=== PATIENT | female | born 1990 | race African-American/Black ===

== ENCOUNTER 2019-09-05 11:10 | Emergency (ER) | payer OTHER ==
[2019-09-05 11:21] VITALS: BP 103/64; PULSE 63; TEMP 98; BMI 27.3
[2019-09-05] MEDS ORDERED: DIPHTH,PERTUSS(ACELL),TET 0.5 ML DISP.SYRIN IM ONE ×2 (11:36→11:38)
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
== END 2019-09-05 11:47 | disposition home or self-care (01) ==
LOC: JERFT 11:10
DX: Z01.00 Encounter for examination of eyes and vision without abnormal findings (principal)
CPT/HCPCS: 90715; 99282-25

== ENCOUNTER 2020-02-04 18:00 | Emergency (ER) | payer OTHER ==
[2020-02-04 18:31] VITALS: BP 118/88; PULSE 89; TEMP 99; BMI 26.6
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
== END 2020-02-04 19:07 | disposition home or self-care (01) ==
LOC: FER 18:00
DX: S46.912A Strain of unspecified muscle, fascia and tendon at shoulder and upper arm level, left arm, initial encounter (principal)
CPT/HCPCS: 73030-TC-LT-FY; 99283-25

== ENCOUNTER 2020-06-20 14:15 | Emergency (ER) | payer OTHER ==
[2020-06-20 14:35] VITALS: BP 118/70; PULSE 80; TEMP 98.1; BMI 28.1
== END 2020-06-20 15:07 | disposition home or self-care (01) ==
LOC: FER 14:15
DX: S61.201A Unspecified open wound of left index finger without damage to nail, initial encounter (principal)
CPT/HCPCS: 99283-25